=== PATIENT | female | born 1990 | race Caucasian/White ===

== ENCOUNTER 2017-04-03 10:45 | Emergency (ER) | payer MEDICAID, OTHER ==
[2017-04-03 11:05] VITALS: BMI 20.9
[2017-04-03 11:06] VITALS: TEMP 98.3; O2SAT 98
--- NOTE | 2017-04-03 11:46 | C.PDOC ---
History Of Present Illness 27 y/o female presents to the ED with complaints of nausea, vomiting and "just dont feel like myself." Pt notes that she currently does not feel nasuea, it comes and goes. TOlerated breakfast. Pt denies abdominal pain, fever, diarrhea, urinary/bowel symptoms or any other complaints. Pt generally has irregular menses. (-) vaginal bleeding or pelvic pain. (-) URI symptoms. . Time Seen by Provider: 04/03/17 11:18 Chief Complaint (Nursing): GI Problem History Per: Patient History/Exam Limitations: no limitations Onset/Duration Of Symptoms: Days Current Symptoms Are (Timing): Still Present Severity: Mild Recent travel outside of the [place]: No Past Medical History Reviewed: Historical Data, Nursing Documentation, Vital Signs Vital Signs: Last Vital Signs Temp 98.3 F 04/03/17 11:05 Pulse 72 04/03/17 12:33 Resp 18 04/03/17 12:33 BP 128/72 04/03/17 12:33 Pulse Ox 98 04/03/17 12:33 Family History: States: Unknown Family Hx - Social History Hx Tobacco Use: Yes Hx Alcohol Use: No Hx Substance Use: No - Immunization History Hx Tetanus Toxoid Vaccination: Yes Hx Influenza Vaccination: No Hx Pneumococcal Vaccination: No Review Of Systems Except As Marked, All Systems Reviewed And Found Negative. Constitutional: Negative for: Fever Gastrointestinal: Positive for: Nausea, Vomiting. Negative for: Abdominal Pain , Diarrhea, Constipation Genitourinary: Negative for: Dysuria, Frequency, Hematuria Physical Exam - Physical Exam Appears: Non-toxic, No Acute Distress Skin: Warm, Dry, No Rash Head: Atraumatic, Normacephalic Eye(s): bilateral: Normal Inspection, EOMI Nose: Normal Oral Mucosa: Moist Neck: Normal, Normal ROM, Supple Lymphatic: Normal Exam Chest: Symmetrical Cardiovascular: Rhythm Regular, No Murmur Respiratory: Normal Breath Sounds, No Rales, No Rhonchi, No Wheezing Gastrointestinal/Abdominal: Normal Exam, Soft, No Tenderness Extremity: Bilateral: Atraumatic Neurological/Psych: Oriented x3, Normal Speech, Normal Cognition ED Course And Treatment O2 Sat by Pulse Oximetry: 98 (room air) Pulse Ox Interpretation: Normal Progress Note: Plan: urine, urine preg, Po challennge. On re-evlauation, pt tolerated po. No abdominal or pelvic pain. Pt was instructed to follow up with OB in 1-2 days for reevaluation or return to ER if symptoms persist or worsen. Disposition - Disposition Referrals: [facility] [Outside] Disposition: HOME/ ROUTINE Disposition Time: 12:27 Condition: STABLE Additional Instructions: Follow up with OB doctor in 1-3 days without fail for further evaluation. Take medications as prescribed. Return to the emergency department at any time if symptoms persist or worsen. Prescriptions: Nitrofurantoin Macrocrystals [Macrobid] 1 cap PO BID #14 cap Multivit/Folic Acid/I [ Plus] 1 tab PO DAILY #30 tab Instructions: (ED) - Clinical Impression Clinical Impression: , UTI (urinary tract infection) - PA / DIRECTOR SECURITY RISK MANAGEMENT / Resident Statement MD/DO has reviewed & agrees with the documentation as recorded. - Scribe Statement The provider has reviewed the documentation as recorded by the Scribe Pete spaulding All medical record entries made by the Kandisibcaroline were at my direction and personally dictated by me. I have reviewed the chart and agree that the record accurately reflects my personal performance of the history, physical exam, medical decision making, and the department course for this patient. I have also personally directed, reviewed, and agree with the discharge instructions and disposition.
[2017-04-03 11:56] LABS: HCG,QUALITATIVE URINE POSITIVE (NEGATIVE)
[2017-04-03 12:05] LABS: SQUAMOUS EPITHIAL 14 /hpf (0-5); URINE BACTERIA RARE (<OCC); URINE BILIRUBIN NEGATIVE (NEGATIVE); URINE BLOOD NEGATIVE (NEGATIVE); URINE CLARITY Hazy (Clear); URINE COLOR Yellow (YELLOW); URINE GLUCOSE (UA) NORMAL (Normal); URINE LEUKOCYTE ESTERASE 1+ Leu/uL (Negative); URINE NITRATE NEGATIVE (NEGATIVE); URINE PROTEIN NEGATIVE (NEGATIVE); URINE UROBILINOGEN NORMAL mg/dL (0.2-1.0)
[2017-04-03 12:33] VITALS: BP 128/72; PULSE 72; RESP 18
== END 2017-04-03 12:36 | disposition home or self-care (01) ==
LOC: SUPCPDRO 10:45 → C.ER 10:45
DX: O23.40 Unspecified infection of urinary tract in pregnancy, unspecified trimester (principal); Z3A.00 Weeks of gestation of pregnancy not specified

== ENCOUNTER 2017-06-21 11:32 | Emergency (ER) | payer MEDICAID, OTHER ==
[2017-06-21 11:33] VITALS: BMI 20.9
[2017-06-21 11:55] VITALS: BP 106/71; PULSE 78; RESP 20; TEMP 97.1; O2SAT 100
--- NOTE | 2017-06-21 13:35 | C.PDOC ---
History Of Present Illness 27 y/o female, 7 months , presents to ED requesting detox from heroin. Pt reports using heroin IV for several years, last use was 1 hour ago. Pt denies any active physical complaints at this time. Denies abdominal pain, n/v, vaginal bleeding or vaginal discharge. Time Seen by Provider: 06/21/17 13:03 Chief Complaint (Nursing): Substance Abuse History Per: Patient History/Exam Limitations: no limitations Onset/Duration Of Symptoms: Gradual Current Symptoms Are (Timing): Still Present Suicide/Self Injury Attempted (Context): None Modifying Factor(s): Other (heroin) Severity: None Pain Scale Rating Of: 0 Associated Symptoms: denies: Suicidal Thoughts, Suicidal Plan Involuntary Hold By: None Recent travel outside of the [place]: No Additional History Per: Family Past Medical History Reviewed: Historical Data, Nursing Documentation, Vital Signs Vital Signs: Last Vital Signs Temp 97.1 F L 06/21/17 11:51 Pulse 78 06/21/17 11:51 Resp 20 06/21/17 11:51 BP 106/71 06/21/17 11:51 Pulse Ox 100 06/21/17 13:50 Family History: States: Unknown Family Hx - Social History Hx Tobacco Use: Yes Hx Alcohol Use: No Hx Substance Use: Yes - Immunization History Hx Tetanus Toxoid Vaccination: Yes Hx Influenza Vaccination: No Hx Pneumococcal Vaccination: No Review Of Systems Except As Marked, All Systems Reviewed And Found Negative. Constitutional: Negative for: Fever, Chills Cardiovascular: Negative for: Chest Pain, Palpitations Respiratory: Negative for: Cough, Shortness of Breath Gastrointestinal: Negative for: Nausea, Vomiting, Abdominal Pain Genitourinary: Negative for: Dysuria, Hematuria, Vaginal Discharge, Vaginal Bleeding Musculoskeletal: Negative for: Back Pain Neurological: Negative for: Headache, Dizziness Psych: Negative for: Suicidal ideation Physical Exam - Physical Exam Appears: Non-toxic, No Acute Distress Skin: Normal Color, Warm, Dry Head: Atraumatic, Normacephalic Eye(s): bilateral: Normal Inspection, PERRL, EOMI Nose: Normal Oral Mucosa: Moist Neck: Normal ROM, Supple Chest: Symmetrical Cardiovascular: Rhythm Regular, No Murmur Respiratory: Normal Breath Sounds, No Rales, No Rhonchi, No Wheezing, Other ( gravid abdomen) Gastrointestinal/Abdominal: Soft, No Tenderness Back: No CVA Tenderness Extremity: Normal ROM, No Pedal Edema, No Deformity Extremity: Bilateral: Atraumatic Neurological/Psych: Oriented x3, Normal Speech, Normal Cognition ED Course And Treatment O2 Sat by Pulse Oximetry: 100 (on RA) Pulse Ox Interpretation: Normal Medical Decision Making Medical Decision Making: food service worker spoke with patient, was informed there are no detox beds available at this time. Pt expressed concerns for abdominal pain with oyster worker. On re-evaluation, mother states that pt has had abdominal pain since yesterday. Patient denies any pre stephon care. Blood work, UA, and ultrasound was offered but parent refused all work up. Pt states that she will follow up at another hospital. On re-exam, pt is resting comfortably, no acute distress. Patient ate a sandwich while waiting. Patient denied any type of pain or discomfort in the initial evaluation when asked. Disposition - Disposition Disposition: HOME/ ROUTINE Disposition Time: 13:57 Condition: STABLE Forms: [facility] (Icelandic) - Clinical Impression Clinical Impression: Opiate dependence - Scribe Statement The provider has reviewed the documentation as recorded by the Scribcaroline Pimentel All medical record entries made by the Scribe were at my direction and personally dictated by me. I have reviewed the chart and agree that the record accurately reflects my personal performance of the history, physical exam, medical decision making, and the department course for this patient. I have also personally directed, reviewed, and agree with the discharge instructions and disposition.
== END 2017-06-21 13:50 | disposition home or self-care (01) ==
LOC: C.ER 11:32
DX: F11.20 Opioid dependence, uncomplicated (principal)